=== PATIENT | male | born 1960 | race Caucasian/White ===

== ENCOUNTER 2020-10-14 06:22 | Day surgery (SDC) | payer BC, OTHER ==
[~2020-10-14] VITALS: Ht 177.8 cm; Wt 77.3 kg
[~2020-10-14 06:22] MED LIST: AMLOD PO; AMLODIPINE PO; AZEL23SP NAS; BACL-19 PO; BENAZAPRIL PO; BENAZEPRIL PO; DIAZ5TAB4 PO; DOCU-144 RC; DOXA1TAB2 PO; OXYB15TA18 PO; calcium PO; cranberry PO; vitamin D PO
[2020-10-14] MEDS ORDERED: CHLORHEXIDINE 15 ML UDC MM STA (07:42)
[2020-10-14] MEDS ORDERED: LACTATED RINGERS 1,000 ML IV SCH (07:42)
[2020-10-14 07:43] VITALS: BP 135/87
== END 2020-10-14 09:25 | disposition home or self-care (01) ==
LOC: OUT 06:22
PROVIDERS: ATTEND Internal Medicine Gastroenterology
DX: Z12.11 Encounter for screening for malignant neoplasm of colon (principal); K63.5 Polyp of colon; K62.1 Rectal polyp; K64.1 Second degree hemorrhoids; K64.4 Residual hemorrhoidal skin tags; K57.30 Diverticulosis of large intestine without perforation or abscess without bleeding; G82.50 Quadriplegia, unspecified; Z86.010 Personal history of colon polyps; Z91.040 Latex allergy status
CPT/HCPCS: 88305